=== PATIENT | female | born 1965 | race Caucasian/White ===

== ENCOUNTER → 2022-04-07 12:52 | Outpatient (BNVA) | payer OTHER, SELFPAY | PROVIDERS: Visit Provider Nurse Practitioner Family | DX: R06.02 Shortness of breath (principal); R07.89 Other chest pain | CPT/HCPCS: 71046 ==

== ENCOUNTER → 2023-05-04 11:27 | Outpatient (BNVA) | payer BC, SELFPAY | PROVIDERS: PCP Family Medicine; Visit Provider Family Medicine | DX: Z00.00 Encounter for general adult medical examination without abnormal findings (principal); Z13.1 Encounter for screening for diabetes mellitus; Z13.220 Encounter for screening for lipoid disorders; Z13.6 Encounter for screening for cardiovascular disorders; G47.00 Insomnia, unspecified; J45.909 Unspecified asthma, uncomplicated; Z13.820 Encounter for screening for osteoporosis; Z78.0 Asymptomatic menopausal state; Z12.11 Encounter for screening for malignant neoplasm of colon; M48.02 Spinal stenosis, cervical region; R20.0 Anesthesia of skin; R29.898 Other symptoms and signs involving the musculoskeletal system; M54.2 Cervicalgia; Z12.31 Encounter for screening mammogram for malignant neoplasm of breast; G47.01 Insomnia due to medical condition | CPT/HCPCS: 80053; 80061 ==

== ENCOUNTER 2023-05-26 10:06 | Outpatient (CLI) | payer BC, SELFPAY ==
--- NOTE | 2023-05-26 10:15 | MR_ITS ---
WS: [id number] MRI CERVICAL SPINE NONCONTRAST TECHNIQUE: Sagittal T1, T2 and STIR imaging. Axial T2, gradient, and fiesta imaging. CLINICAL INFORMATION: M48.02 - Spinal stenosis, cervical region COMPARISON: None. FINDINGS: Straightening of the normal cervical lordosis. Susceptibility artifact C4-5 from prior fusion. No hig h-grade central canal stenosis. Small protrusions C6-C7 and C7-T1 worse at C7-T1. C2-C3: Mild facet arthropathy. Spinal canal and foramen are patent. C3-C4: Mild disc osteophytic ridging. Mild facet arthropathy. Mild LEFT greater than RIGHT bony adrianne inal narrowing. Spinal canal is patent. C4-C5: Susceptibility artifact degrades images. Mild facet arthropathy. Spinal canal appears patent. Mild bilateral bony foraminal narrowing. C5-C6: Susceptibly artifact degrades images. Spinal canal appears patent on the sagittal imaging. Mil d bilateral bony foraminal narrowing. Mild facet arthropathy. C6-C7: Disc osteophyte complex with endplate ridging. Moderate LEFT and no significant RIGHT foramina l narrowing. Spinal canal is patent. C7-T1: Mild disc osteophyte complex with a tiny central protrusion. Mild LEFT greater than RIGHT bony foraminal narrowing. Additional tiny protrusions at T1-T2 and T2-3. Visualized brain stem structures: Normal. Prevertebral soft tissues: Normal. IMPRESSION: 1. Prior postoperative fusion C4-5 with susceptibility artifact. This degrades some images. 2. Spinal canal appears patent. Cord signal appears normal where visualized. 3. Moderate LEFT C6-7 bony foraminal narrowing. 4. Multilevel mild bony foraminal narrowing worse at LEFT C3-4, LEFT C4-5, bilateral C5-C6. 5. Mild LEFT C7-T1 bony foraminal narrowing with a small central protrusion. 6. Shallow central protrusions at T1-T2 and T2-3.
== END 2023-05-26 10:07 | disposition home or self-care (01) ==
LOC: RAD 10:07
PROVIDERS: PCP Family Medicine; Visit Provider Family Medicine
DX: M48.02 Spinal stenosis, cervical region (principal); R20.0 Anesthesia of skin; R29.898 Other symptoms and signs involving the musculoskeletal system; Z98.1 Arthrodesis status; M50.23 Other cervical disc displacement, cervicothoracic region
CPT/HCPCS: 72141

== ENCOUNTER → 2023-06-24 13:33 | Outpatient (BNVA) | payer BC, SELFPAY | PROVIDERS: PCP Family Medicine; Visit Provider Emergency Medicine | DX: R06.2 Wheezing (principal); I70.90 Unspecified atherosclerosis | CPT/HCPCS: 71046 ==

== ENCOUNTER → 2023-08-19 10:52 | Outpatient (BNVA) | payer BC, SELFPAY | PROVIDERS: PCP Family Medicine; Visit Provider Family Medicine | DX: I10 Essential (primary) hypertension | CPT/HCPCS: 81000; 93005 ==

== ENCOUNTER 2023-09-08 12:04 | Outpatient (CLI) | payer BC, SELFPAY ==
[2023-09-08 12:15] VITALS: BMI 20.4
--- NOTE | 2023-09-08 12:15 | ECG_ITS ---
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 Interpretive Statements NAME OF STUDY: TREADMILL STRESS TEST INDICATION: Screening, Family HX CAD, Chest pressure , PROCEDURE: At the baseline, the patient's blood pressure was with a heart rate of. The baseline electrocardiogram showed normal sinus rhythm with incomplete right bundle branch block pattern. The patient exercised for 10 minutes and 24 seconds on a standard Ignacio protocol. Patient attained a maximum heart rate of 168 beats per minute(105% of the maximum predicted heart rate) with a blood pressure at the peak exercise of 146/80 mm Hg. The EKG at the peak exercise revealed no significant changes. Patient did not have any chest pain or any significant cardiac arrhythmias with the exercise During the recovery phase, there were no new changes. Blood pressure at the end of the recovery phase was 149/90 mm Hg with a heart rate of 91 per minute. CONCLUSION: 1. No significant EKG changes with the treadmill exercise 2. No exercise-induced chest pain or cardiac arrhythmia 3. Good exercise tolerance, attained a maximum of 13.5 METs Low probability for significant coronary ischemia, based on the above finding Electronically Signed On 09-20-2023 13:32:36 CDT by Amalia Fairchild M.D. [email or web address]
[2023-09-08 13:04] VITALS: BP 149/90; PULSE 89
== END 2023-09-08 12:05 | disposition home or self-care (01) ==
PROVIDERS: PCP Family Medicine; Visit Provider Family Medicine
DX: Z13.6 Encounter for screening for cardiovascular disorders (principal); R07.89 Other chest pain; Z82.49 Family history of ischemic heart disease and other diseases of the circulatory system
CPT/HCPCS: 93017

== ENCOUNTER 2023-12-13 08:33 | Outpatient (CLI) | payer BC, SELFPAY ==
--- NOTE | 2023-12-13 08:45 | US_ITS ---
WS: [id number] Complete ABDOMINAL ULTRASOUND HISTORY: R10.13 - Epigastric pain COMPARISON: None available. Liver: 14.3 cm in length. Normal size liver and echogenicity. No bile duct dilatation or mass. Portal Vein: Normal hepatopetal flow with monophasic waveform. Gallbladder: Normally distended gallbladder with no stones or wall thickening. CBD: 0.4 cm Pancreas: Normal size and echogenicity. Right kidney: 9.8 cm x 4.7 x 4.8 cm. Cortex:0.9 cm. Normal size and echogenicity. No hydronephrosis or mass. Left kidney: 9.0 cm x 4.6 cm x 4.4 cm. Cortex: 1.0 cm. Normal size and echogenicity. No hydronephrosis or mass. Spleen: 7.2 cm. Normal size and echogenicity. Aorta and IVC: Unremarkable abdominal aorta and IVC. US/US abdomen complete* [id number] Impression: Normal complete abdomen ultrasound.
== END 2023-12-13 08:34 | disposition home or self-care (01) ==
PROVIDERS: PCP Family Medicine; Visit Provider Family Medicine
DX: R10.13 Epigastric pain (principal)
CPT/HCPCS: 76700; 87624

== ENCOUNTER → 2024-06-19 10:07 | Outpatient (BNVA) | payer BC, SELFPAY | PROVIDERS: PCP Family Medicine; Visit Provider Family Medicine | DX: I10 Essential (primary) hypertension; E78.00 Pure hypercholesterolemia, unspecified | CPT/HCPCS: 80053; 80061 ==

== ENCOUNTER 2024-10-11 10:30 | Outpatient (CLI) | payer BC, SELFPAY ==
--- NOTE | 2024-10-11 10:40 | MM_ITS ---
WS: [id number] BILATERAL 3D TOMOSYNTHESIS DIGITAL SCREENING MAMMOGRAPHY WITH CAD CLINICAL INFORMATION: Z12.39 - Encounter for other screening for malignant neop... HISTORY: Screening mammogram. No current complaints. COMPARISON: 2022 TECHNIQUE: Bilateral CC and MLO views. FINDINGS: Breast implants are unchanged. Scattered fibroglandular densities bilaterally. No suspicious focal mass, asymmetry, calcifications, or architectural distortion. No evidence of malignancy. Incidental RIGHT punctate calcification. MM/MM [facility] tomosynthesis [id number] IMPRESSION: DENSITY: There are scattered areas of fibroglandular density. BI-RADS: 2 - Benign. FOLLOW UP: 1 Year Follow-up Recommend return to annual screening mammography.
== END 2024-10-11 10:31 | disposition home or self-care (01) ==
PROVIDERS: PCP Family Medicine; Visit Provider Family Medicine
DX: Z12.31 Encounter for screening mammogram for malignant neoplasm of breast (principal); R92.323 Mammographic fibroglandular density, bilateral breasts; R92.1 Mammographic calcification found on diagnostic imaging of breast; Z98.82 Breast implant status
CPT/HCPCS: 77063; 77067

== ENCOUNTER → 2024-10-23 16:08 | Outpatient (BNVA) | payer BC, SELFPAY | PROVIDERS: PCP Family Medicine; Visit Provider Nurse Practitioner | DX: M19.042 Primary osteoarthritis, left hand (principal) | CPT/HCPCS: 73130 ==